=== PATIENT | female | born 1950 | race Caucasian/White ===

== ENCOUNTER → 2017-01-06 | Outpatient (CLI) | payer MEDICARE, BC ==
[~2017-01-06] MED LIST: ABILIFY PO; ALEVE220 M1 PO; ASACOL400 MG PO; CHLORDIAZEPOXIDE PO; CLIDINIUM-CDP C1 CAP PO; DICYCLOMINE 20 MG PO; DICYCLOMINE HCL20 MG PO; FLAGYL 500 MG PO; IBUPROFEN PO; LAMICTAL PO; LAMOTRIGINE 100 MG PO; LIDODERM30 EA TOP; METFORMIN 500 MG PO; NORVASC PO; PHENERGAN25 M1 PO; PREMPRO 0.625/21 TAB PO; PREVACID 30 MG PO; PREVACID PO; VALTREX PO; ZIPRASIDONE HCL PO; ZONEGRAN100 MG PO; [UNRECOGNIZED DRUG - CODE] PO
--- NOTE | ~2017-01-06 | MR122 ---
[facility] A Service of [facility] & [facility] RADIOLOGY TEXT RESULTS PATIENT: MICHELL ESCALANTE LOCATION: [facility] : 52 UNIT #: [id number] AGE: [address]: CHERYL CLIFTON MD SEX: F ORDER DR: [id number] [facility] [address] [place], [place] [address] [id number] MR#: [id number] Acc #: [id number] NAME: MICHELL ESCALANTE : 1950 SEX: F STUDY DATE/TIME: 01/06/2017 11:00 UNIT: [facility] ROOM: STUDY DESCRIPTION: MR MRA Head Wo Contrast Attending Physician: Cheryl Clifton M.D. Referring Physician: Cheryl Clifton M.D. Ordering Physician: Cheryl Clifton M.D. Primary Care Physician: Tomi York M.D. MRI CENTER REPORT This report is preliminary unless electronic signature is present. EXAM MR angiogram of the head without contrast dated 01/06/2017. COMPARISON MRI brain without contrast dated 11/08/2016. HISTORY Decreased memory since stroke 2 years ago. Peripheral vision is also decreased since then. FINDINGS Source and 3-D reconstruction MIP images of the [place] was obtained without contrast. Bilateral intracranial internal carotid arteries demonstrate relatively normal expected flow. Bilateral anterior cerebral arteries are unremarkable. Bilateral middle cerebral arteries demonstrate mild irregularity of the vessels in the bilateral angular branches and mild narrowing involving a short segment of the lateral half of the left middle cerebral artery. There is probably a small ACom. Right prominent PCom is seen which feeds P2 and distal portions of the right CT TECH. Right P1 segment is very hypoplastic. Basilar artery appears to be relatively within normal size. Bilateral visualized posterior cerebral arteries demonstrate multiple, tandem, short segments of [id number] stenosis, with significantly decreased flow in the P3, P4 segments when compared to the small flow noted in the left side. Left vertebral artery is dominant and it predominantly feeds the basilar artery. Right vertebral artery is not well seen. No obvious aneurysm or AVM is seen. IMPRESSION 1. There are multiple short segments of tandem moderate stenosis noted in bilateral posterior cerebral arteries, relatively worse in the right, where the distal P3 and the P4 segments are not as well seen as the left side. [facility]. [facility] A Service of [facility] RADIOLOGY TEXT RESULTS PATIENT: MICHELL ESCALANTE LOCATION: [facility] : 52 UNIT #: [id number] AGE: [address]: CHERYL CLIFTON MD SEX: F ORDER DR: 2. Mild short tandem segments of narrowing are also seen in bilateral angular branches of MCA and in a short segment of the lateral half of the left M1 segment of the MCA. 3. These findings are most suggestive of atherosclerotic disease with stenosis, given the patient's age. 4. 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 It is unclear if it is congenital or related to atherosclerotic disease. Refer to CTA head and neck from 2015. 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 Refer to that report. Findings are probably stable. Dictated by... Connie Ortiz M.D. THIS IS AN ELECTRONICALLY VERIFIED REPORT Connie Ortiz M.D. at 01/08/2017 3:01 PM CPR/psc TD: 01/06/2017 21:21 JOB #: [id number] MRI CENTER REPORT Page 1 of 1 COPY
[2017-01-06 11:06] LABS: POC - CREATININE 1.3 mg/dL (0.44-1.03)
== END | disposition home or self-care (01) ==
LOC: CCAT 09:34
PROVIDERS: Psychiatry & Neurology Clinical Neurophysiology
DX: I66.02 Occlusion and stenosis of left middle cerebral artery (principal); H53.40 Unspecified visual field defects; I65.23 Occlusion and stenosis of bilateral carotid arteries
CPT/HCPCS: 70544; 82565